=== PATIENT | female | born 1990 | race Caucasian/White ===

== ENCOUNTER 2023-11-06 11:27 | Day surgery (SDC) | payer OTHER ==
[2023-11-04 09:55] VITALS: BMI 21.9
[~2023-11-06 11:27] MED LIST: LACTATED RINGERS 1,000 ML IV SCH; LIDOCAINE 1% (10MG/ML) FOR IV START INTRADERMA PRN
[2023-11-06 13:07] VITALS: RESP 16; TEMP 97.7
[2023-11-06] MEDS ORDERED: PROPOFOL 10 MG/ML 20 ML VIAL IV ONE (13:40)
--- NOTE | 2023-11-06 13:51 | P.PCN ---
Date of Procedure: 11/06/23 Procedure(s) Performed: BRIEF HISTORY: Patient is a 33-year-old pleasant female scheduled for an elective colonoscopy as a part of evaluation of intermittent left upper quadrant abdominal pain, diarrhea and rectal bleeding last 4 months duration. PROCEDURE PERFORMED: Colonoscopy random biopsies. PREOPERATIVE DIAGNOSIS: Abdominal pain, diarrhea and rectal bleeding for 4 months duration. IV sedation per Anesthesia. PROCEDURE: After informed consent was obtained, the patient, was brought into the endoscopy unit. IV sedation was administered by Anesthesia under continuous monitoring. Digital rectal examination was normal. Initially the Olympus CF-160 flexible video colonoscope was then inserted in the rectum, gradually advanced into the cecum without any difficulty. Careful examination was performed as the scope was gradually being withdrawn. Ileocecal valve and the appendiceal orifice were visualized and appeared normal. Prep was excellent. Mucosa of the cecum, ascending colon, transverse colon, descending colon, sigmoid colon, and rectum appeared normal. Biopsies were done from ascending and descending colon to rule out microscopic/collagenous colitis. Retroflexion was performed in the rectum and no lesions were seen. The patient tolerated the procedure well. IMPRESSION: Normal-appearing colon from rectum to cecum with no evidence of colitis or colorectal neoplasia . RECOMMENDATIONS: Findings of this examination were discussed with the patient is a family. She is to follow with the biopsy results. She will be seen in office in 2 weeks.. Recommended repeat colonoscopy at age 46.
[2023-11-06 14:26] VITALS: BP 120/79; PULSE 77
== END 2023-11-06 14:30 | disposition home or self-care (01) ==
LOC: ORWHC2ENDO 11:27
PROVIDERS: ATTEND Internal Medicine Gastroenterology
DX: K62.5 Hemorrhage of anus and rectum (principal); F41.9 Anxiety disorder, unspecified; F32.A Depression, unspecified; F17.200 Nicotine dependence, unspecified, uncomplicated; Z79.899 Other long term (current) drug therapy
CPT/HCPCS: 81025; 88305; 45380; J2704